=== PATIENT | male | born 1940 | race Caucasian/White ===

== ENCOUNTER 2020-11-21 08:47 | Emergency (ER) | payer MEDICARE ==
[~2020-11-21] VITALS: Ht 195.6 cm; Wt 127.0 kg
[~2020-11-21 08:47] MED LIST: AMLO10 PO; ASPI325 PO; ASPI325EC PO; Amaryl1 MG PO; LISI20 PO; MONT10T PO; Percocet 5-3251 EACH PO; [UNRECOGNIZED DRUG - OTHER] BOTHEYES
[2020-11-21 09:10] LABS: Source, Urine Catheter
[2020-11-21 09:17] LABS: Bilirubin, Urine Neg (Neg); Blood, Urine 1+ (Neg); Glucose Qualitative, Urine 2+ (Neg); Ketones, Urine Neg (Neg); Leukocyte Esterase, Urine 1+ (Neg); Nitrite, Urine Neg (Neg); Protein, Urine 2+ (Neg); Urobilinogen, Urine NORM (Normal)
[2020-11-21 09:24] LABS: Appearance, Urine Clear (Clear); Color, Urine Yellow (P-Yellow)
[2020-11-21 09:34] LABS: Bacteria Few /hpf; Squamous Epithelial Cells Not Seen /hpf (Few)
[2020-11-21] MEDS ORDERED: Cipro500 MG PO (10:03)
== END 2020-11-21 10:12 | disposition home or self-care (01) ==
LOC: ER 08:47
PROVIDERS: Physician Assistant
DX: N39.0 Urinary tract infection, site not specified (principal); R33.9 Retention of urine, unspecified; Z79.82 Long term (current) use of aspirin; Z79.84 Long term (current) use of oral hypoglycemic drugs; Z79.899 Other long term (current) drug therapy; Z87.891 Personal history of nicotine dependence; Z85.51 Personal history of malignant neoplasm of bladder
CPT/HCPCS: 51702; 51798; 81001; 87086; 99283-25

== ENCOUNTER → 2022-04-08 | Outpatient (CLI) | payer MEDICARE ==
[~2022-04-08] MED LIST changes: +AMLODIPINE BESY10 MG PO; +Cipro500 MG PO; +METFORMIN HCL500 M3 PO; +MONTELUKAST SOD10 MG PO; +OZEMPIC0.25 MG/0. SC; +PRED FORTE5 ML BOTHEYES; +TAMS.4ER PO
[2022-04-08 12:39] LABS: Source, Urine Clean Catch
[2022-04-08 15:37] LABS: Appearance, Urine Hazy (Clear); Bilirubin, Urine Neg (Neg); Blood, Urine 5+ (Neg); Color, Urine Yellow (P-Yellow); Glucose Qualitative, Urine Neg (Neg); Ketones, Urine Neg (Neg); Leukocyte Esterase, Urine Neg (Neg); Nitrite, Urine Neg (Neg); Protein, Urine 2+ (Neg); Urobilinogen, Urine NORM (Normal)
[2022-04-08 16:14] LABS: Bacteria Mod /hpf; Mucus Light (0-Heavy); Red Blood Cells, Urine TNTC /hpf (0-2); Squamous Epithelial Cells Rare /hpf (Few)
== END | disposition home or self-care (01) ==
LOC: LAB 12:37 → LAB SHORT 12:37 → EDSTATUS 04-08 12:30 → LAB FUT 04-08 12:30
PROVIDERS: Nurse Practitioner Family
DX: N39.0 Urinary tract infection, site not specified (principal)
CPT/HCPCS: 81001; 87086

== ENCOUNTER 2022-05-18 14:52 | Observation (INO) | payer MEDICARE | END 2022-05-22 15:40 | disposition home health service (06) | LOC: ER 14:52 → MEDS 14:53 | PROVIDERS: ADMIT Internal Medicine | DX: R55 Syncope and collapse (principal); R33.9 Retention of urine, unspecified; N39.0 Urinary tract infection, site not specified; I10 Essential (primary) hypertension; E11.9 Type 2 diabetes mellitus without complications; I25.2 Old myocardial infarction; Z20.822 Contact with and (suspected) exposure to COVID-19; Z87.440 Personal history of urinary (tract) infections; Z79.84 Long term (current) use of oral hypoglycemic drugs; Z79.899 Other long term (current) drug therapy; Z85.51 Personal history of malignant neoplasm of bladder ==